=== PATIENT | female | born 1990 | race Caucasian/White ===

== ENCOUNTER 2019-08-12 10:36 | Emergency (ER) | payer BC ==
[2019-08-12] MEDS ORDERED: NORMAL SALINE 1000 ML 1,000 ML IV ONE (11:20)
[2019-08-12] MEDS ORDERED: ACETAMINOPHEN 325 MG TABLET PO ONE (11:20)
--- NOTE | 2019-08-12 11:22 | ER Document Report ---
ED Medical Screen (RME) - General Chief Complaint: Fever Stated Complaint: FEVER/CHILLS Time Seen by Provider: 08/12/19 11:13 Primary Care Provider: LAKSHMI CONTRERAS [Primary Care Provider] - Follow up as needed Information source: Patient Notes: Patient states she has had fever and chills for the past 3 or 4 days. Patient complains of chronic generalized body aches although states that she has had worsening right lower quadrant abdominal pain since yesterday. Patient was at the [facility] prior to her arrival here and had a negative strep, negative flu and negative urinalysis. Patient states that she was told that her urine showed that she was dehydrated. Patient did have a fever of 103.5 in the office and they gave her Motrin. [facility] was concerned that patient may have appendicit is given her right lower quadrant tenderness. I have greeted and performed a rapid initial assessment of this patient. A comprehensive ED assessment and evaluation of the patient, analysis of test r esults and completion of the medical decision making process will be conducted by additional ED providers. TRAVEL OUTSIDE OF THE [place] IN LAST 30 DAYS: No - Related Data Allergies/Adverse Reactions: Sulfa (Sulfonamide Antibiotics) Allergy (Unknown, Verified 08/12/19 10:49) Hives codeine [Codeine] Allergy (Verified 08/12/19 10:49) Hives Past Medical History - Social History Chew tobacco use (# tins/day): No Frequency of alcohol use: None Drug Abuse: None - Past Medical History Cardiac Medical History: Denies: Hx Coronary Artery Disease, Hx Hypertension Pulmonary Medical History: Denies: Hx Asthma Endocrine Medical History: Denies: Hx Diabetes Mellitus Type 1, Hx Diabetes Mellitus Type 2 Skin Medical History: Denies Hx Cellulitis, Reports Hx MRSA - OCT 2012 Psychiatric Medical History: Reports: Hx Anxiety, Hx Depression Infectious Medical History: Reports: Hx MRSA Past Surgical History: Reports: Hx Myringotomy, Hx Tonsillectomy - Immunizations Immunizations up to date: Yes Hx Diphtheria, Pertussis, Tetanus Vaccination: Yes Physical Exam - Vital signs Vitals: Temp Pulse BP Pulse Ox 98.9 F 113 H 131/85 H 97 08/12/19 10:41 08/12/19 10:41 08/12/19 10:41 08/12/19 10:41 - Abdominal Inspection: Morbidly Obese Tenderness: Tender - Right lower quadrant tenderness Course - Vital Signs Vital signs: Temp Pulse Resp BP Pulse Ox 98.9 F 113 H 131/85 H 97 08/12/19 10:41 08/12/19 10:41 08/12/19 10:41 08/12/19 10:41 Doctor's Discharge - Discharge Referrals: LOCALMD,NO [Primary Care Provider] - Follow up as needed
[2019-08-12 12:14] LABS: APPEARANCE,URINE CLOUDY; BILIRUBIN,URINE NEGATIVE (NEGATIVE); COLOR,URINE YELLOW; GLUCOSE, URINE NEGATIVE (NEGATIVE); KETONES,URINE 20 mg/dL (NEGATIVE); LEUKOCYTE ESTERASE,URINE LARGE (NEGATIVE); NITRITE,URINE POSITIVE (NEGATIVE); PROTEIN,URINE 30 mg/dL (NEGATIVE); UROBILINOGEN,URINE NEGATIVE mg/dL (<2.0)
[2019-08-12] MEDS ORDERED: CEFTRIAXONE 1 GM/D5W RTU 1 GM/50 ML RTUPB IV ONE (12:41)
[2019-08-12 12:57] LABS: ABSOLUTE BASOPHILS # (AUTO) 0.1 10^3/uL (0.0-0.2); ABSOLUTE LYMPHOCYTES (AUTO) 2.8 10^3/uL (0.5-4.7); ABSOLUTE MONOCYTES (AUTO) 2.2 10^3/uL (0.1-1.4); ABSOLUTE NEUT (AUTO) 10.9 10^3/uL (1.7-8.2); BASOPHILS % (AUTO) 0.4 % (0-2); EOSINOPHILS % (AUTO) 0.1 % (0-6); HEMATOCRIT 41.3 % (36.0-47.0); HEMOGLOBIN 14.1 g/dL (12.0-15.5); LYMPHOCYTES % (AUTO) 17.6 % (13-45); MEAN CORPUSCULAR HEMOGLOBIN 29.8 pg (27.0-33.4); MEAN CORPUSCULAR HGB CONC 34.2 g/dL (32.0-36.0); MEAN CORPUSCULAR VOLUME 87 fl (80-97); MONOCYTES % (AUTO) 13.6 % (3-13); PLATELET COUNT 213 10^3/uL (150-450); RED BLOOD COUNT 4.74 10^6/uL (3.72-5.28); RED CELL DISTRIBUTION WIDTH 12.9 % (11.5-14.0); SEGMENTED NEUTROPHILS % (AUTO) 68.3 % (42-78); TOTAL CELLS COUNTED % (AUTO) 100 %; WHITE BLOOD COUNT 15.9 10^3/uL (4.0-10.5)
--- NOTE | 2019-08-12 13:05 | ER Document Report ---
ED General - General Chief Complaint: Fever Stated Complaint: FEVER/CHILLS Time Seen by Provider: 08/12/19 11:13 Primary Care Provider: DIANE,LAKSHMI [NO LOCAL MD] - Follow up as needed TRAVEL OUTSIDE OF THE [place] IN LAST 30 DAYS: No - HPI Patient complains to provider of: feve3r, chills, sick Severity: Moderate Pain Level: 1 Context: 29 year old female referred here from [facility] for fever. Reports no uri symptoms and flu and strep done at urgent care were -. Lower abd pain and feeling bad for a couple days. R> left low back pain. Fever and chills. Nausea. Poor appetite. No chronic medical conditions. - Related Data Allergies/Adverse Reactions: Sulfa (Sulfonamide Antibiotics) Allergy (Unknown, Verified 08/12/19 10:49) Hives codeine [Codeine] Allergy (Verified 08/12/19 10:49) Hives Past Medical History - General Information source: Patient - Social History Smoking Status: Current Every Day Smoker Chew tobacco use (# tins/day): No Frequency of alcohol use: None Drug Abuse: None Family History: Reviewed & Not Pertinent Patient has suicidal ideation: No Patient has homicidal ideation: No - Past Medical History Cardiac Medical History: Denies: Hx Coronary Artery Disease, Hx Hypertension Pulmonary Medical History: Denies: Hx Asthma Endocrine Medical History: Denies: Hx Diabetes Mellitus Type 1, Hx Diabetes Mellitus Type 2 Skin Medical History: Denies Hx Cellulitis, Reports Hx MRSA - OCT 2012 Psychiatric Medical History: Reports: Hx Anxiety, Hx Depression Infectious Medical History: Reports: Hx MRSA Past Surgical History: Reports: Hx Myringotomy, Hx Tonsillectomy - Immunizations Immunizations up to date: Yes Hx Diphtheria, Pertussis, Tetanus Vaccination: Yes Review of Systems - Review of Systems Constitutional: No symptoms reported EENT: No symptoms reported Cardiovascular: No symptoms reported Respiratory: No symptoms reported Gastrointestinal: No symptoms reported Genitourinary: No symptoms reported Female Genitourinary: No symptoms reported Musculoskeletal: No symptoms reported Skin: No symptoms reported Hematologic/Lymphatic: No symptoms reported Neurological/Psychological: No symptoms reported Physical Exam - Vital signs Vitals: Temp Pulse BP Pulse Ox 98.9 F 113 H 131/85 H 97 08/12/19 10:41 08/12/19 10:41 08/12/19 10:41 08/12/19 10:41 Interpretation: Normal - General General appearance: Appears well, Alert - HEENT Head: Normocephalic, Atraumatic Eyes: Normal Pupils: PERRL - Respiratory Respiratory status: No respiratory distress Chest status: Nontender Breath sounds: Normal Chest palpation: Normal - Cardiovascular Rhythm: Regular Heart sounds: Normal auscultation Murmur: No - Abdominal Inspection: Normal Distension: No distension Bowel sounds: Normal Tenderness: Nontender Organomegaly: No organomegaly - Back Back: Normal, Tender - R CVA ttp - Extremities General upper extremity: Normal inspection, Nontender, Normal color, Normal ROM, Normal temperature General lower extremity: Normal inspection, Nontender, Normal color, Normal ROM, Normal temperature, Normal weight bearing. No: Robert's sign - Neurological Neuro grossly intact: Yes Cognition: Normal Orientation: AAOx4 [place] Coma Scale Eye Opening: Spontaneous [place] Coma Scale Verbal: Oriented [place] Coma Scale Motor: Obeys Commands [place] Coma Scale Total: 15 Speech: Normal Motor strength normal: LUE, RUE, LLE, RLE Sensory: Normal - Psychological Associated symptoms: Normal affect, Normal mood - Skin Skin Temperature: Warm Skin Moisture: Dry Skin Color: Normal Course - Re-evaluation Re-evalutation: 08/12/19 17:35 MDM 29 year old with right side pylonephritis. She feels better here. We discussed return precautions and she expressed understanding. She tolerates po here and without difficulty and is certainly nontoxic. - Vital Signs Vital signs: Temp Pulse Resp BP Pulse Ox 98.9 F 113 H 131/85 H 97 08/12/19 10:41 08/12/19 10:41 08/12/19 10:41 08/12/19 10:41 - Laboratory Result Diagrams: 08/12/19 12:30 08/12/19 12:30 Laboratory results interpreted by me: 08/12/19 08/12/19 08/12/19 11:30 12:30 12:30 WBC 15.9 H Sumner % (Auto) 13.6 H Absolute Neuts (auto) 10.9 H Absolute Monos (auto) 2.2 H Potassium 3.5 L Glucose 117 H Urine Protein 30 H Urine Ketones 20 H Urine Blood MODERATE H Urine Nitrite POSITIVE H Ur Leukocyte Esterase LARGE H - Diagnostic Test Radiology reviewed: Reports reviewed Discharge - Discharge Clinical Impression: Pyelonephritis Condition: Good Disposition: HOME, SELF-CARE Instructions: Acetaminophen, Antibiotic Therapy ([facility]), Family Physicians / Practices, Fever ([facility]), Pyelonephritis ([facility]) Additional Instructions: Take tylenol or motrin for pain. Return here for fever, chills inability to tolerate medicine or other problems or concerns. Prescriptions: Amox Tr/Potassium Clavulanate [Augmentin 875-125 Tablet] 1 tab PO BID 10 Days tablet Fluconazole [Diflucan] 150 mg PO ONCE PRN #1 tablet PRN Reason: Ondansetron [Zofran Odt 4 mg Tablet] 1 - 2 tab PO Q4H PRN #10 tab.rapdis PRN Reason: For Nausea/Vomiting Forms: Return to Work Referrals: LOCALMD,NO [NO LOCAL MD] - Follow up as needed
[2019-08-12 13:19] LABS: ALBUMIN 4.2 g/dL (3.5-5.0); ALKALINE PHOSPHATASE 94 U/L (38-126); ANION GAP 12 (5-19); ASPARTATE AMINO TRANSFERASE 22 U/L (14-36); BILIRUBIN,DIRECT 0.2 mg/dL (0.0-0.4); BILIRUBIN,TOTAL 0.8 mg/dL (0.2-1.3); BLOOD UREA NITROGEN 10 mg/dL (7-20); CARBON DIOXIDE 26 mmol/L (22-30); CHLORIDE 99 mmol/L (98-107); GLUCOSE 117 mg/dL (75-110); POTASSIUM 3.5 mmol/L (3.6-5.0)
[2019-08-12 13:39] LABS: CHLAM PCR NOT DETECTED (NOT DETECT)
--- NOTE | 2019-08-12 13:41 | RADIOLOGY REPORT (SQ) ---
EXAM DESCRIPTION: CT ABD/PELVIS NO ORAL OR IV COMPLETED DATE/TIME: 08/12/2019 1:22 pm REASON FOR STUDY: right flank pain COMPARISON: None. TECHNIQUE: CT scan of the abdomen and pelvis performed without intravenous or oral contrast. Images reviewed with lung, soft tissue, and bone windows. Reconstructed coronal and sagittal MPR images revi ewed. All images stored on PACS. All CT scanners at this facility use dose modulation, iterative reconstruction, and/or weight based d osing when appropriate to reduce radiation dose to as low as reasonably achievable (ALARA). [facility]: Dose Right [facility]: CareDose [facility]: Dose Right [facility]: Teradose 4D [facility]: Smart [employer] Odor Resistant Bedding RADIATION DOSE: CT Rad equipment meets quality standard of care and radiation dose reduction techniq ues were employed. CTDIvol: 17.9 mGy. DLP: 1046 mGy-cm.mGy. LIMITATIONS: None. FINDINGS: LOWER CHEST: No significant findings. No nodules or infiltrates. NON-CONTRASTED LIVER, SPLEEN, ADRENALS: Evaluation limited by lack of IV contrast. No identified sign ificant masses. PANCREAS: No masses. No peripancreatic inflammatory changes. GALLBLADDER: No identified stones by CT criteria. No inflammatory changes to suggest cholecystitis. RIGHT KIDNEY AND URETER: No suspicious masses. There is mild perinephric stranding. No significant calcifications. No hydronephrosis or hydroureter. LEFT KIDNEY AND URETER: No suspicious masses. Assessment limited by lack of IV contrast. No signifi cant calcifications. No hydronephrosis or hydroureter. AORTA AND RETROPERITONEUM: No aneurysm. No retroperitoneal masses or adenopathy. BOWEL AND PERITONEAL CAVITY: No obvious masses or inflammatory changes. No free fluid. APPENDIX: Normal. PELVIS, BLADDER, AND ABDOMINAL WALL:No abnormal masses. No free fluid. Bladder normal. BONES: No significant findings. OTHER: No other significant finding. IMPRESSION: Possible right pyelonephritis. Correlate clinically. The appendix is normal. There is no ureteral stone or obstruction. COMMENT: Quality ID # [id number]: Final reports with documentation of one or more dose reduction techniques (e.g., Automated exposure control, adjustment of the mA and/or kV according to patient size, use of iterative reconstruction technique) TECHNICAL DOCUMENTATION: JOB ID: [id number] [employer]- All Rights Reserved Reading location - IP/workstation name: [email or web address]
--- NOTE | 2019-08-12 14:49 | RADIOLOGY REPORT (SQ) ---
EXAM DESCRIPTION: U/S NON OB PEL TV W/DOPPLER COMPLETED DATE/TIME: 08/12/2019 2:35 pm REASON FOR STUDY: RLQ pain COMPARISON: CT of the abdomen pelvis with contrast from 08/08/2019 TECHNIQUE: Dynamic and static grayscale images acquired of the pelvis via transvaginal approach and recorded on PACS. Additional selected color Doppler and spectral images recorded. LIMITATIONS: None. FINDINGS: UTERUS: The uterus measures 7.9 x 5.5 x 3.5 cm. The echotexture of the myometrium is homo geneous. There is no uterine mass. ENDOMETRIAL STRIPE: The endometrium measures 7 mm in thickness. CERVIX: The cervix measures 2.6 cm in length. There is a single Nabothian cyst. RIGHT OVARY AND DOPPLER: The right ovary measures 2.6 x 1.8 x 1.9 cm. On Doppler there is intact art erial inflow within the ovarian stroma. There is no right adnexal mass. LEFT OVARY AND DOPPLER: The left ovary measures 4.6 x 2.1 x 3.1 cm. On Doppler there is intact arter ial inflow within the ovarian stroma. There is an ovoid cystic lesion in the left adnexa that measur es approximately 3.4 x 1.6 x 2.4 cm ; the lesion appears separate from the ovary. FREE FLUID: There is a trace amount of free fluid in the cul-de-sac. OTHER: No other finding. IMPRESSION: 1. Normal uterus, endometrium, and cervix. 2. No evidence of ovarian torsion. 3. 3.4 x 1.6 x 2.4 cm ovoid cystic lesion in the left adnexa that appears separate from the ovary co uld represent a paraovarian cyst. TECHNICAL DOCUMENTATION: JOB ID: [id number] [employer]- All Rights Reserved Rev-03/22 Reading location - IP/workstation name: [email or web address]
[2019-08-12 17:59] VITALS: BP 135/83
== END 2019-08-12 17:59 | disposition home or self-care (01) ==
LOC: ER 10:36
DX: N12 Tubulo-interstitial nephritis, not specified as acute or chronic (principal); R50.9 Fever, unspecified; R10.30 Lower abdominal pain, unspecified; M54.5 Low back pain; R11.0 Nausea; R63.0 Anorexia; F17.200 Nicotine dependence, unspecified, uncomplicated; Z88.1 Allergy status to other antibiotic agents; Z88.5 Allergy status to narcotic agent
CPT/HCPCS: 36415; 87040; 83605; 83690; 84703; 85025; 80053; 81001; 87491; 87591; 76830; 93976; 74176; J7030; J0696; 96361; 96365; 99284